=== PATIENT | female | born 1960 | race American Indian/Alaskan Native ===

== ENCOUNTER 2020-11-20 20:19 | Emergency (ER) | payer MEDICARE ==
[2020-11-20] MEDS ORDERED: ALBUTEROL 2.5 MG/3 ML NEBU IH ONE (21:00)
[2020-11-20] MEDS ORDERED: IPRATROPIUM 0.02% NEBU 2.5 ML IH ONE (21:00)
[2020-11-20] MEDS ORDERED: methylPREDNISolone Sod Succinate 125 MG/2 ML INJ IM ONE (21:00)
--- NOTE | 2020-11-20 23:00 | XRay Report ---
CHEST 2 VIEWS INDICATION / CLINICAL INFORMATION: Cough, asthma. COMPARISON: None available. FINDINGS: SUPPORT DEVICES: None. HEART / MEDIASTINUM: No significant abnormality. LUNGS / PLEURA: There is focal parenchymal opacity in the right lower lobe which could represent atel ectasis or pneumonia. No pneumothorax. ADDITIONAL FINDINGS: No significant additional findings. IMPRESSION: 1. Focal parenchymal opacity in the right lower lobe could represent atelectasis or pneumonia. Follow -up chest radiographs should be obtained in the next several weeks to ensure clearing. Signer Name: Star Severino MD Signed: 11/20/2020 10:56 PM Workstation Name: [id number]
--- NOTE | 2020-11-20 23:08 | Emergency Department Report ---
- General Chief Complaint: Upper Respiratory Infection Stated Complaint: ASTHMA Source: patient Mode of arrival: Ambulatory Limitations: No Limitations - History of Present Illness Initial Comments: Patient is a 60-year-old -[place] female with a history of asthma, COPD, hypertension and heavy tobacco abuse who presents to the ED with complaint of acute onset persistent nasal and sinus congestion, dry cough, shortness of breath and wheezing for the last 1 week, worse in the last 2 days. Patient states that she has been using her albuterol inhalers and nebulizers at home with no relief. Patient denies fever, chills, nausea, vomiting, dizziness, chest pain, abdominal pain, neck pain, sore throat, back pain, diarrhea, dysuria, urinary frequency and urgency or change in vision and headache. MD Complaint: cough, other (Shortness of breath) -: Sudden, week(s) (1) Severity: moderate Severity scale (0 -10): 5 Quality: aching Consistency: constant Improves With: nothing Worsens With: nothing Associated Symptoms: denies other symptoms, rhinorrhea, nasal congestion, cough, shortness of breath. denies: fever, chills, myalgias, diaphoresis, headache, sore throat, stiff neck, abdominal pain, nausea, diarrhea, dysuria, rash, right sweats, weight loss, epistaxis, hoarseness, ear pain, other Treatments Prior to Arrival: none - Related Data Previous Rx's Medication Instructions Recorded Last Taken Type Benzonatate [Tessalon Perles] 100 mg PO Q8HR #30 capsule 11/20/20 Unknown Rx Montelukast [Singulair] 10 mg PO QPM #30 tablet 11/20/20 Unknown Rx levoFLOXacin [Levaquin] 750 mg PO QDAY #7 tablet 11/20/20 Unknown Rx methylPREDNISolone [Medrol 4MG 4 mg PO DAILY #21 tab.ds.pk 11/20/20 Unknown Rx DOSEPAK (21 tabs)] Allergies Allergy/AdvReac Type Severity Reaction Status Date / Time No Known Allergies Allergy Verified 11/20/20 20:50 ED Review of Systems ROS: Stated complaint: ASTHMA Other details as noted in HPI Constitutional: denies: chills, fever Eyes: denies: eye pain, eye discharge, vision change ENT: congestion. denies: ear pain, throat pain Respiratory: cough, shortness of breath, wheezing Cardiovascular: denies: chest pain, palpitations Endocrine: no symptoms reported Gastrointestinal: denies: abdominal pain, nausea, vomiting, diarrhea Genitourinary: denies: urgency, dysuria, discharge Musculoskeletal: denies: back pain, joint swelling, arthralgia Skin: denies: rash, lesions Neurological: denies: headache, weakness, paresthesias Psychiatric: denies: anxiety, depression Hematological/Lymphatic: denies: easy bleeding, easy bruising ED Past Medical Hx - Past Medical History Previous Medical History?: Yes Hx Asthma: Yes - Surgical History Past Surgical History?: Yes Hx Cholecystectomy: Yes Additional Surgical History: , thyroidectomy - Social History Smoking Status: Current Every Day Smoker - Medications Home Medications: Home Medications Medication Instructions Recorded Confirmed Last Taken Type Benzonatate [Tessalon Perles] 100 mg PO Q8HR #30 capsule 11/20/20 Unknown Rx Montelukast [Singulair] 10 mg PO QPM #30 tablet 11/20/20 Unknown Rx levoFLOXacin [Levaquin] 750 mg PO QDAY #7 tablet 11/20/20 Unknown Rx methylPREDNISolone [Medrol 4MG 4 mg PO DAILY #21 tab.ds.pk 11/20/20 Unknown Rx DOSEPAK (21 tabs)] ED Physical Exam - General Limitations: No Limitations General appearance: alert, in no apparent distress - Head Head exam: Present: atraumatic, normocephalic, normal inspection - Eye Eye exam: Present: normal appearance, PERRL, EOMI Pupils: Present: normal accommodation - ENT ENT exam: Present: normal exam, normal orophraynx, mucous membranes moist, TM's normal bilaterally, normal external ear exam - Neck Neck exam: Present: normal inspection, full ROM - Respiratory Respiratory exam: Present: wheezes (Diffuse coarse wheezes throughout). Absent: respiratory distress, rales, rhonchi, chest wall tenderness, accessory muscle use, decreased breath sounds, prolonged expiratory - Cardiovascular Cardiovascular Exam: Present: normal rhythm, tachycardia. Absent: systolic murmur, diastolic murmur, rubs, gallop - GI/Abdominal GI/Abdominal exam: Present: soft, normal bowel sounds. Absent: tenderness, guarding, rebound, hyperactive bowel sounds, hypoactive bowel sounds, organomegaly, mass - Extremities Exam Extremities exam: Present: normal inspection, full ROM, normal capillary refill - Back Exam Back exam: Present: normal inspection, full ROM. Absent: tenderness, CVA tenderness (R), CVA tenderness (L), muscle spasm, paraspinal tenderness - Neurological Exam Neurological exam: Present: alert, oriented X3, CN II-XII intact, normal gait, reflexes normal - Psychiatric Psychiatric exam: Present: normal affect, normal mood - Skin Skin exam: Present: warm, dry, intact, normal color. Absent: rash ED Course Vital Signs 11/20/20 20:23 Temperature 98.7 F Pulse Rate 116 H Respiratory 20 Rate Blood Pressure 131/81 O2 Sat by Pulse 92 Oximetry ED Medical Decision Making - Radiology Data Radiology results: report reviewed, image reviewed [facility] [address] [place] [address] XRay Report Signed Patient: MADDY HERNANDEZ MR#: [id number] : 1960 Acct:[id number] Age/Sex: 60 / F ADM Date: 11/20/20 Loc: ED Attending Dr: Ordering Physician: JAIMIE JOEL Date of Service: 11/20/20 Procedure(s): XR chest routine 2V Accession Number(s): [id number] cc: JAIMIE JOEL Fluoro Time In Minutes: CHEST 2 VIEWS INDICATION / CLINICAL INFORMATION: Cough, asthma. COMPARISON: None available. FINDINGS: SUPPORT DEVICES: None. HEART / MEDIASTINUM: No significant abnormality. LUNGS / PLEURA: There is focal parenchymal opacity in the right lower lobe which could represent atelectasis or pneumonia. No pneumothorax. ADDITIONAL FINDINGS: No significant additional findings. IMPRESSION: 1. Focal parenchymal opacity in the right lower lobe could represent atelectasis or pneumonia. Follow-up chest radiographs should be obtained in the next several weeks to ensure clearing. Signer Name: Star Severino MD Signed: 11/20/2020 10:56 PM Workstation Name: [id number] Transcribed By: SS Dictated By: Star Severino MD Electronically Authenticated By: Star Severino MD Signed Date/Time: 11/20/202255 DD/ 54 TD/TT: - Medical Decision Making This is a 60-year-old -[place] female with a history of asthma, COPD, hypertension and heavy tobacco abuse who presents to the ED with complaint of acute onset persistent nasal and sinus congestion, dry cough, shortness of breath and wheezing for the last 1 week, worse in the last 2 days. Patient states that she has been using her albuterol inhalers and nebulizers at home with no relief. In the ED, patient is alert and oriented x3 and is not in any distress but anxious and tachycardic in triage. The patient's oxygen saturation in triage was 97% in room air. Patient received Solu-Medrol 125 mg intramuscular injection in the ED and also received DuoNeb treatment. Chest x- ray showed small right lower lobe infiltrate is suspected to be due to pneumonia or atelectasis. On reevaluation, patient's tachycardia resolved, wheezing also resolved and the patient also felt better with oxygen saturation of 99% in room air. Patient was therefore discharged home on medications including antibiotics for suspected community-acquired pneumonia as well as Medrol Dosepak. Patient was advised to follow-up with her primary care physician in 5 to 7 days for reevaluation. Patient is advised return to the ED immediately if symptoms get worse. - Differential Diagnosis Pneumonia; asthma; bronchitis; URI; COVID-19 Critical care attestation.: If time is entered above; I have spent that time in minutes in the direct care of this critically ill patient, excluding procedure time. ED Disposition Clinical Impression: Acute bronchitis with asthma with acute exacerbation, Shortness of breath Community acquired pneumonia Qualifiers: Laterality: right Lung location: lower lobe of lung Qualified Code(s): J18.9 - Pneumonia, unspecified organism Disposition: DC-01 TO HOME OR SELFCARE Is pt being admited?: No Does the pt Need Aspirin: No Condition: Stable Instructions: Shortness of Breath, Adult, [id number], Acute Bronchitis, Adult, [id number], Asthma, Adult, [id number], Community-Acquired Pneumonia, Adult, [id number], Acute Bronchitis (ED), Bacterial Pneumonia (ED) Additional Instructions: Chest x-ray shows mild right lower lobe opacity suspected to be due to pneumonia. Therefore take medications with food, drink plenty of fluids and follow-up with your primary care physician in 7 to 10 days for reevaluation. Return to the ED immediately if symptoms get worse. Prescriptions: levoFLOXacin [Levaquin] 750 mg PO QDAY #7 tablet methylPREDNISolone [Medrol 4MG DOSEPAK (21 tabs)] 4 mg PO DAILY #21 tab.ds.pk Montelukast [Singulair] 10 mg PO QPM #30 tablet Benzonatate [Tessalon Perles] 100 mg PO Q8HR #30 capsule Referrals: [facility] [Provider Group] - 3-5 Days Forms: Work/School Release Form(ED) Time of Disposition: 23:06 Print Language: WELSH
[2020-11-20 23:35] VITALS: BP 108/67
== END 2020-11-20 23:35 | disposition home or self-care (01) ==
LOC: ED 20:19
DX: J18.9 Pneumonia, unspecified organism (principal); J45.901 Unspecified asthma with (acute) exacerbation; Z90.49 Acquired absence of other specified parts of digestive tract; Z98.890 Other specified postprocedural states; F17.200 Nicotine dependence, unspecified, uncomplicated; Z79.899 Other long term (current) drug therapy
CPT/HCPCS: 71046; 94640; 96372; 99283; J2930